=== PATIENT | female | born 2005 | race Caucasian/White ===

== ENCOUNTER → 2025-03-28 10:50 | Outpatient (REF) | payer OTHER, SELFPAY | LOC: HWRAD 10:50 | PROVIDERS: ATTENDING PHYSICIAN Thoracic Surgery (Cardiothoracic Vascular Surgery) | DX: M51.372 Other intervertebral disc degeneration, lumbosacral region with discogenic back pain and lower extremity pain (principal) | CPT/HCPCS: 72120 ==